=== PATIENT | male | born 1990 | race Caucasian/White ===

== ENCOUNTER 2019-05-25 22:55 | Emergency (ER) | payer OTHER ==
[2019-05-25] MEDS ORDERED: Lidocaine 1% w/Epinephrine 1:100K 30 ML VIAL ONE (23:10)
[2019-05-25] MEDS ORDERED: Lidocaine 1% (PF) 30 ML VIAL ONE (23:10)
[2019-05-25] MEDS ORDERED: Sodium Bicarbonate 2.5 MEQ/5 ML VIAL ONE (23:26)
[2019-05-25] MEDS ORDERED: Amoxicillin/Potassium Clav 875 MG TAB ONE (23:34)
== END 2019-05-26 00:10 | disposition home or self-care (01) ==
LOC: NAV ERS 22:55
DX: S01.412A Laceration without foreign body of left cheek and temporomandibular area, initial encounter (principal); F17.290 Nicotine dependence, other tobacco product, uncomplicated; W01.198A Fall on same level from slipping, tripping and stumbling with subsequent striking against other object, initial encounter
CPT/HCPCS: 12013; J2001